=== PATIENT | female | born 1945 | race Caucasian/White ===

== ENCOUNTER → 2019-09-19 | Outpatient (CLI) | payer OTHER ==
[2019-09-19 18:48] LABS: Adenovirus F 40/41 Not Detected (NOT DETECT); Astrovirus Not Detected (NOT DETECT); Campylobacter Sp Not Detected (NOT DETECT); Cryptosporidium Not Detected (NOT DETECT); Cyclospora Cayetanensis Not Detected (NOT DETECT); E. Coli O157 Not Detected (NOT DETECT); Entamoeba Histolytica Not Detected (NOT DETECT); Enteroaggregative E. coli-EAEC Not Detected (NOT DETECT); Enteropathogenic E. coli-EPEC Not Detected (NOT DETECT); Enterotoxigenic E. coli-ETEC Not Detected (NOT DETECT); Giardia Lamblia Not Detected (NOT DETECT); Norovirus GI/GII Not Detected (NOT DETECT); Plesiomonas Shigelloides Not Detected (NOT DETECT); Rotavirus A Not Detected (NOT DETECT); Salmonella Sp Not Detected (NOT DETECT); Sapovirus Not Detected (NOT DETECT); Shiga Toxin-prod E. coli-STEC Not Detected (NOT DETECT); Shigella/Enteroin E. coli-EIEC Not Detected (NOT DETECT); Vibrio Cholerae Not Detected (NOT DETECT); Vibrio Sp Not Detected (NOT DETECT); Yersinia Enterocolitica Not Detected (NOT DETECT)
== END | disposition home or self-care (01) ==
LOC: LAB SHORT 15:43 → LAB 15:43
PROVIDERS: Family Medicine
DX: R19.7 Diarrhea, unspecified (principal)
CPT/HCPCS: 0097U

== ENCOUNTER → 2020-05-03 | Outpatient (CLI) | payer OTHER | END | disposition home or self-care (01) | LOC: LAB SHORT 10:00 → LAB 10:00 | DX: J02.9 Acute pharyngitis, unspecified (principal) | CPT/HCPCS: 87081 ==

== ENCOUNTER → 2020-07-20 | Outpatient (CLI) | payer OTHER | LOC: LAB SHORT 08:15 → PLD 08:15 | DX: J35.8 Other chronic diseases of tonsils and adenoids (principal) | CPT/HCPCS: 88305 ==

== ENCOUNTER 2021-12-31 17:58 | Emergency (ER) | payer OTHER ==
[~2021-12-31] VITALS: Ht 162.6 cm; Wt 61.2 kg
[2021-12-31] MEDS ORDERED: PRAV20 (20:46)
[2021-12-31] MEDS ORDERED: LOSARTAN POTASS25 M2 PO (20:46)
[2021-12-31] MEDS ORDERED: Kristalose20 GM PO (21:26)
[2021-12-31] MEDS ORDERED: Miralax17 GM PO (21:26)
== END 2021-12-31 21:56 | disposition home or self-care (01) ==
LOC: ER 17:58
DX: K59.09 Other constipation (principal); Z79.899 Other long term (current) drug therapy
CPT/HCPCS: 74019; A9270

== ENCOUNTER 2022-10-03 17:15 | Inpatient (IN) | payer OTHER ==
[~2022-10-03] VITALS: Ht 162.6 cm; Wt 59.6 kg
[~2022-10-03 17:15] MED LIST: Kristalose20 GM PO; LOSARTAN POTASS25 M2 PO; Miralax17 GM PO; PRAV20 PO
[2022-10-03 17:58] LABS: BASOPHILS ABSOLUTE AUTO 0.04 K/mm3 (0.00-0.23); BASOPHILS PERCENT AUTO 1 % (0-2); EOSINOPHILS ABSOLUTE AUTO 0.06 K/mm3 (0.00-0.68); EOSINOPHILS PERCENT AUTO 1 % (0-6); Hematocrit 39.9 % (33.0-51.0); Hemoglobin 13.4 g/dL (11.5-16.0); IMMATURE GRAN ABSOLUTE AUTO 0.02 K/mm3 (0.00-0.10); IMMATURE GRAN PERCENT AUTO 0 % (0-1); LYMPHOCYTES ABSOLUTE AUTO 1.35 K/mm3 (0.84-5.20); LYMPHOCYTES PERCENT AUTO 25 % (21-46); MONOCYTES ABSOLUTE AUTO 0.43 K/mm3 (0.16-1.47); MONOCYTES PERCENT AUTO 8 % (4-13); Mean Corpuscular HGB 28.9 pg (26.0-34.0); Mean Corpuscular HGB Conc 33.6 g/dL (31.5-36.5); Mean Corpuscular Volume 86 fL (80-100); NEUTROPHILS ABSOLUTE AUTO 3.49 K/mm3 (1.96-9.15); NEUTROPHILS PERCENT AUTO 65 % (41-73); Platelet Count 198 K/mm3 (150-400); RDW Coefficient Variation 13.1 % (11.7-14.2); RDW Standard Deviation 40.5 fL (35.1-46.3); Red Blood Cell Count 4.63 M/mm3 (3.80-5.20); White Blood Cell Count 5.39 K/mm3 (4.00-11.30)
[2022-10-03 18:18] LABS: Albumin, Blood 3.8 g/dL (3.4-5.0); Albumin/Globulin Ratio 1.1 (0.8-1.8); Bilirubin, Total 0.5 mg/dL (0.1-1.0); Bun/Creatinine Ratio 17.1 (12.0-20.0); Calcium, Blood 9.2 mg/dL (8.5-10.1); Creatinine, Blood 0.76 mg/dL (0.40-1.00); Globulin, Blood 3.5 g/dL (2.2-4.0); Potassium, Blood 4.3 mmol/L (3.5-5.5); Total Protein, Blood 7.3 g/dL (6.4-8.2)
[2022-10-03 18:33] LABS: Magnesium, Blood 2.1 mg/dL (1.6-2.4)
[2022-10-03 18:35] LABS: Thyroid Stimulating Hormone 4.92 uIU/mL (0.360-4.800)
[2022-10-03 18:40] LABS: International Normalized Ratio 0.98; Prothrombin Time Results 10.3 Sec (9.7-11.5)
[2022-10-03 19:14] LABS: Influenza A, PCR NEGATIVE (NEGATIVE); Influenza B, PCR NEGATIVE (NEGATIVE); Resp Syncytial Virus, PCR NEGATIVE (NEGATIVE); SARS-Cov-2 (COVID-19) PCR, MMC NEGATIVE (NEGATIVE)
--- NOTE | 2022-10-04 | NUR ---
ADMIT NOTE PT ARRIVED FROM THE ER VIA STRETCHER. SHE WAS PLACED ON THE CARE TEAM COORDINATOR SCHEDULER, NOTED TO BE IN 3RD DEGREE HEART BLOCK. CARDIOLOGY WAS NOTIFIED BY THE ER AND SHE WILL LIKELY HAVE A PACEMAKER PLACED TODAY ACCORDING TO MD NOTES. BP IS ELEVATED. SHE IS ASYMPTOMATIC AT THIS TIME W/NO S/S OF ACUTE CARDIAC OR RESP DISTRESS. SHE IS ON ROOM AIR W/OXYGEN SAT >90%. SHE IS ALERT AND ORIENTED X4, VERY PLEASANT. SHE HAS NO COMPLAINTS OF PAIN AT THIS TIME.
[2022-10-04 04:07] LABS: BASOPHILS ABSOLUTE AUTO 0.02 K/mm3 (0.00-0.23); BASOPHILS PERCENT AUTO 0 % (0-2); EOSINOPHILS ABSOLUTE AUTO 0.06 K/mm3 (0.00-0.68); EOSINOPHILS PERCENT AUTO 1 % (0-6); Hematocrit 36.6 % (33.0-51.0); Hemoglobin 12.8 g/dL (11.5-16.0); IMMATURE GRAN ABSOLUTE AUTO 0.01 K/mm3 (0.00-0.10); IMMATURE GRAN PERCENT AUTO 0 % (0-1); LYMPHOCYTES ABSOLUTE AUTO 0.94 K/mm3 (0.84-5.20); LYMPHOCYTES PERCENT AUTO 14 % (21-46); MONOCYTES ABSOLUTE AUTO 0.55 K/mm3 (0.16-1.47); MONOCYTES PERCENT AUTO 8 % (4-13); Mean Corpuscular HGB 29.3 pg (26.0-34.0); Mean Corpuscular Volume 84 fL (80-100); Mean Platelet Volume 10.1 fL (9.1-12.4); NEUTROPHILS ABSOLUTE AUTO 5.25 K/mm3 (1.96-9.15); NEUTROPHILS PERCENT AUTO 77 % (41-73); Platelet Count 182 K/mm3 (150-400); RDW Coefficient Variation 13.1 % (11.7-14.2); RDW Standard Deviation 40.6 fL (35.1-46.3); Red Blood Cell Count 4.37 M/mm3 (3.80-5.20); White Blood Cell Count 6.83 K/mm3 (4.00-11.30)
[2022-10-04 04:31] LABS: Albumin, Blood 3.3 g/dL (3.4-5.0); Albumin/Globulin Ratio 1.1 (0.8-1.8); Bilirubin, Total 0.5 mg/dL (0.1-1.0); Bun/Creatinine Ratio 15.3 (12.0-20.0); Calcium, Blood 8.7 mg/dL (8.5-10.1); Creatinine, Blood 0.92 mg/dL (0.40-1.00); Potassium, Blood 3.9 mmol/L (3.5-5.5); Total Protein, Blood 6.3 g/dL (6.4-8.2)
--- NOTE | 2022-10-04 06:13 | NUR ---
SHIFT SUMMERY PT HAS HAD AN UNEVENTUL NIGHT. HR HAS BEEN CONSISTANT IN THE 40S. HYDRALAZINE WAS GIVEN X 1 PER MD ORDER FOR SYSTOLIC GREATER THAN 160 SOON AFTER PT ARRIVAL TO ICU. SHE HAS SOME INCONTINENCE BUT HAS ALSO VOIDED IN THE BEDPAN WELL. SHE IS NPO FOR POSSIBLE PACEMAKER PLACEMENT TODAY. SHE HAS HAD NO ACUTE DISTRESS OR CHANGES OVERNIGHT.
--- NOTE | 2022-10-04 17:52 | NUR ---
END OF SHIFT SUMMARY: PT REMAINS A/O X4, PLEASANT AT COOPERATIVE. IN 3RD DEGREE HEART BLOCK [id number], CONVERTED TO SR, DR. LAWRENCE NOTIFIED, NO CHANGE TO POC, PT WILL GET PACEMAKER PLACED TODAY. MAINTAINS O2 SAT > 95% ON ROOM AIR, WAS ON 2L NC LAST SHIFT WHILE ASLEEP, LUNGS CTA X ALL SPRINGER. NPO SINCE MIDNIGHT FOR PLANNED PACER. INCONTINENT OF URINE, CHANGED DEPENDS/PAD AND CLEANED NEEDED. SKIN INTACT. FAMILY AT BEDSIDE, UPDATED ON POC, ALL QUESTIONS ANSWERED. PIV X 2 SL, BOTH FLUSH WELL.
--- NOTE | 2022-10-04 20:07 | NUR ---
ASSUMED CARE OF PT FROM PRESSURIZER AT 2010
--- NOTE | 2022-10-05 06:11 | NUR ---
END OF SHIFT SUMMARY PT SLEPT WELL WITH MINIMAL C/O. PAIN LEVEL OF 8/10, MEDICATED PER EMAR. NORCO 5/325 GIVEN WITH APNEIC EPISODES AND DECREASED HR IN UPPER 50'S. PT WAS NOT SYMPTOMATIC AT THAT TIME. PT ATE ALL OF HER DINNER PROVIDED LASTNIGHT WITHOUT ISSUE. PT IS ABLE TO USE BEDSIDE COMMODE WITHOUT ISSUE WELL WITH STAND BY ASSIST. NO BM THIS SHIFT. PT REQUESTED BRIEF D/T PRIOR INCONT EPISODES OF URINATION. PT FAMILY UNABLE TO PROVIDE RIDE HOME UNTIL THIS AFTERNOON D/T OUT OF TOWN MEDICAL APPOINTMENT. FAMILY DOES NOT WANT PT TO LEAVE ANY OTHER WAY AFTER DISCHARGE. WILL CONTINEU TO MONITOR UNTIL REPORT GIVEN TO AM RN.
[2022-10-05] MEDS ORDERED: TOPROL XL25 MG PO (15:06)
[2022-10-05] MEDS ORDERED: CEPH500 PO (15:07)
--- NOTE | 2022-10-05 15:49 | NUR ---
DISCHARGED HOME PT D/C HOME VIA PERSONAL VEHICLE TRANSPORTED BY FAMILY. ALL D/C INSTRUCTIONS REVIEWED WITH PT AND FAMILY, ALL QUESTIONS ANSWERED.
== END 2022-10-05 16:00 | disposition home or self-care (01) | DRG 244 ==
LOC: ER 17:15 → ICUW 17:16
PROVIDERS: Emergency Medicine; Student in an Organized Health Care Education/Training Program; ADMIT Internal Medicine
PROC: 0JH606Z Insertion of Pacemaker, Dual Chamber into Chest Subcutaneous Tissue and Fascia, Open Approach (ICD-10-PCS; principal; 2022-10-04)
PROC: 02H63JZ Insertion of Pacemaker Lead into Right Atrium, Percutaneous Approach (ICD-10-PCS; 2022-10-04)
PROC: 02HK3JZ Insertion of Pacemaker Lead into Right Ventricle, Percutaneous Approach (ICD-10-PCS; 2022-10-04)
PROC: 3E0102A Introduction of Anti-Infective Envelope into Subcutaneous Tissue, Open Approach (ICD-10-PCS; 2022-10-04)
PROC: 0JPT02Z Removal of Monitoring Device from Trunk Subcutaneous Tissue and Fascia, Open Approach (ICD-10-PCS; 2022-10-04)
DX: I44.2 Atrioventricular block, complete (principal); Z20.822 Contact with and (suspected) exposure to COVID-19; I10 Essential (primary) hypertension; F10.10 Alcohol abuse, uncomplicated; E78.00 Pure hypercholesterolemia, unspecified; F17.200 Nicotine dependence, unspecified, uncomplicated; R05.3 Chronic cough; J44.9 Chronic obstructive pulmonary disease, unspecified; Z79.899 Other long term (current) drug therapy
CPT/HCPCS: 0241U; 33208; 33228; 36415; 71045; 71046; 76937; 80053; 83735; 84439; 84443; 84484; 85025; 85610; 85730; 93005; 93010; 93306; 99152; 99153; 99285-25; A9270; C1781; C1785; C1894; C1898; G0378; J0360; J0690; J1644; J2250; J3010; J7040